=== PATIENT | female | born 1995 | race African-American/Black ===

== ENCOUNTER 2020-09-04 17:16 | Emergency (ER) | payer BC ==
[~2020-09-04] VITALS: Ht 157.5 cm; Wt 90.5 kg
[2020-09-04] MEDS ORDERED: SODIUM CHLORIDE 0.9% 1000ML 1,000 ML IV STA (18:19)
[2020-09-04] MEDS ORDERED: ONDANSETRON HCL INJ 2MG/ML 2ML 2 MG/ML VIAL IV STA (18:19)
[2020-09-04] MEDS ORDERED: SODIUM CHLORIDE FLUSH 10 ML SYR INJ PRN ×2 (18:30)
[2020-09-04] MEDS ORDERED: ONDANSETRON HCL INJ 2MG/ML 2ML 2 MG/ML VIAL ONE (19:26)
[2020-09-04] MEDS ORDERED: SODIUM CHLORIDE 0.9% 1000ML 1,000 ML ONE (19:26)
[2020-09-04] MEDS ORDERED: ONDANSETRON ODT8 MG PO (21:36)
[2020-09-04] MEDS ORDERED: CIPRO500 MG PO (21:36)
[2020-09-04] MEDS ORDERED: LOMOTIL TABLET1 EACH PO (21:36)
== END 2020-09-04 21:50 | disposition home or self-care (01) ==
LOC: FSED 17:45
DX: R07.89 Other chest pain (principal); R00.2 Palpitations; K52.9 Noninfective gastroenteritis and colitis, unspecified; E86.0 Dehydration; R94.31 Abnormal electrocardiogram [ECG] [EKG]
CPT/HCPCS: 71046; 80053; 81003; 82553; 84484; 85025; 93005; 99284; J2405; J7030